=== PATIENT | female | born 1960 | race Caucasian/White ===

== ENCOUNTER → 2017-05-10 | Outpatient (CLI) | payer MEDICAID ==
[~2017-05-10] MED LIST: ASPI-621 PO; DOCU-131 PO; FURO-92 PO; FURO20TA3 PO; GABA-826 PO; GABA-827 PO; HYDR-3245 PO; LEVO50TA5 PO; OXYC1TAB7 PO; PANT40TA5 PO; POTA10TA6 PO; POTA20TA14 PO; Thyroid Med PO; WARF7.5T6 PO-COUM; gabapentin PO
== END ==
LOC: CFH 07:19
PROVIDERS: ATTEND Nurse Practitioner
DX: M48.02 Spinal stenosis, cervical region (principal); M50.222 Other cervical disc displacement at C5-C6 level; M50.323 Other cervical disc degeneration at C6-C7 level
CPT/HCPCS: 72050; 72141

== ENCOUNTER 2017-10-04 22:11 | Inpatient (IN) | payer MEDICAID ==
[~2017-10-04] VITALS: Ht 172.7 cm; Wt 69.3 kg
[~2017-10-04 22:11] MED LIST changes: +WARF7.5T46 PO-COUM; -WARF7.5T6 PO-COUM
[2017-10-04 23:02] LABS: BASOPHILS # (AUTO) 0.03 x10^3/uL (0-0.1); BASOPHILS % (AUTO) 1 % (0-1); EOSINOPHILS # (AUTO) 0.07 x10^3/uL (0-0.4); EOSINOPHILS % (AUTO) 1 % (1-7); LYMPHOCYTES % (AUTO) 34 % (22-44); MD NO; MEAN CORPUSCULAR HGB CONC 33.1 g/dL (32.4-35.8); MEAN CORPUSCULAR VOLUME 90.7 fL (80-100); MEAN PLATELET VOLUME 7.8 fL (7.4-10.4); MONOCYTES # (AUTO) 0.42 x10^3/uL (0.2-0.8); MONOCYTES % (AUTO) 8 % (2-9); NEUTROPHILS # (AUTO) 2.86 x10^3/uL (1.8-6.8); NEUTROPHILS % (AUTO) 56 % (42-75); PLATELET COUNT 216 x10^3/uL (130-400); RED CELL DISTRIBUTION WIDTH 14.3 % (9.6-15.2)
[2017-10-04 23:15] LABS: ALANINE AMINOTRANSFERASE 32 U/L (12-78); ANION GAP 12 mmol/L (5-15); CALCIUM 9.3 mg/dL (8.5-10.1); CHLORIDE 106 mmol/L (98-107); CREATININE 1.29 mg/dL (0.55-1.02)
[2017-10-04 23:19] LABS: ALKALINE PHOSPHATASE 52 U/L (45-117); BILIRUBIN,TOTAL 0.5 mg/dL (0.2-1.0); TOTAL PROTEIN 6.8 g/dL (6.4-8.2); TROPONIN I < 0.015 ng/mL (0.000-0.045)
[2017-10-05] MEDS ORDERED: MAALOX/HYOSCYAMINE/LIDOCAINE 45 ML BTL PO ONE (00:30)
[2017-10-05] MEDS ORDERED: MAALOX/HYOSCYAMINE/LIDOCAINE 45 ML BTL ONE (00:37)
[2017-10-05] MEDS ORDERED: DULO30CA2 PO (01:00)
[2017-10-05] MEDS ORDERED: ASPIRIN 81 MG TABLET CHEW PO ONE (01:00)
[2017-10-05] MEDS ORDERED: METH750T87 PO (01:00)
[2017-10-05] MEDS ORDERED: ASPIRIN 81 MG TABLET CHEW ONE (01:29)
[2017-10-05] MEDS ORDERED: SODIUM CHLORIDE FLUSH 10ML SYR IVF PRN (01:30)
[2017-10-05 02:09] VITALS: BP 129/76
[2017-10-05 02:11] VITALS: BP 129/70
[2017-10-05] MEDS ORDERED: NS + 20MEQ KCL 1,000 ML IV SCH (05:48)
[2017-10-05] MEDS ORDERED: DOCUSATE 100 MG CAPSULE PO PRN (06:00)
[2017-10-05] MEDS ORDERED: ONDANSETRON 2MG/ML, 2ML IVPush PRN (06:00)
[2017-10-05] MEDS ORDERED: ACETAMINOPHEN 325 MG TABLET PO PRN (06:00)
[2017-10-05] MEDS ORDERED: morphine SULFATE 10 MG/ML, 1ML IVPush PRN (06:00)
[2017-10-05] MEDS ORDERED: HYDROcodone/APAP 10/325 MG TABLET PO PRN (06:00)
[2017-10-05] MEDS: METHOCARBAMOL 750 MG TABLET PO SCH ×4 (06:12→15:59)
[2017-10-05 06:44] LABS: TROPONIN I < 0.015 ng/mL (0.000-0.045)
[2017-10-05] MEDS ORDERED: PANTOPROZOLE 40MG TABLET PO SCH (07:30)
[2017-10-05 08:00] VITALS: BP 117/77
[2017-10-05] MEDS: ENOXAPARIN 40 MG/0.4 ML SQ SCH ×3 (08:04→09:00)
[2017-10-05] MEDS ORDERED: REGADENOSON 0.4 MG/5 ML SYRINGE ONE (08:13)
[2017-10-05] MEDS ORDERED: ASPIRIN 81 MG TABLET EC PO SCH (09:00)
[2017-10-05] MEDS ORDERED: DULOXETINE 30 MG CAPSULE.DR PO SCH (09:00)
[2017-10-05] MEDS ORDERED: LEVOTHYROXINE 50 MCG TABLET PO SCH (09:00)
[2017-10-05 14:30] VITALS: BP 105/68
== END 2017-10-05 16:57 | disposition home or self-care (01) | DRG 313 ==
LOC: ED 23:36 → EDIP 10-05 00:59 → 5SO 10-05 02:07
PROVIDERS: ADMIT Family Medicine; ATTEND Family Medicine
DX: R07.89 Other chest pain (principal); N17.0 Acute kidney failure with tubular necrosis; E86.0 Dehydration; G43.909 Migraine, unspecified, not intractable, without status migrainosus; K21.9 Gastro-esophageal reflux disease without esophagitis; I70.0 Atherosclerosis of aorta; Z95.3 Presence of xenogenic heart valve; Z83.3 Family history of diabetes mellitus; I35.0 Nonrheumatic aortic (valve) stenosis; G89.29 Other chronic pain; E03.9 Hypothyroidism, unspecified; Z79.82 Long term (current) use of aspirin
CPT/HCPCS: 36415; 71045; 78452; 80053; 84484; 85025; 93005; 93017; 99285; J1650; J2785; J3480; A9502; C9898

== ENCOUNTER 2018-06-12 11:26 | Emergency (ER) | payer MEDICAID ==
[~2018-06-12] VITALS: Ht 172.7 cm; Wt 66.0 kg
[~2018-06-12 11:26] MED LIST changes: -ASPI-621 PO; +ASPI81TA45 PO; +DULO30CA2 PO; +METH750T87 PO
[2018-06-12] MEDS ORDERED: ONDANSETRON ODT 4 MG ONE (12:57)
[2018-06-12] MEDS ORDERED: HYDROmorphone 2 MG/ML, 1ML ONE ×2 (12:58→13:59)
[2018-06-12] MEDS ORDERED: ONDANSETRON ODT 4 MG PO ONE (13:00)
[2018-06-12] MEDS ORDERED: HYDROmorphone 2 MG/ML, 1ML IM ONE ×2 (13:00→14:00)
[2018-06-12 14:24] VITALS: BP 122/70
== END 2018-06-12 14:27 | disposition home or self-care (01) ==
LOC: ED 12:52
DX: G89.29 Other chronic pain (principal); M54.6 Pain in thoracic spine; M54.2 Cervicalgia; E03.9 Hypothyroidism, unspecified
CPT/HCPCS: 96372; 99283; J1170; Q0162

== ENCOUNTER 2019-07-06 01:58 | Emergency (ER) | payer MEDICAID ==
[~2019-07-06] VITALS: Ht 172.7 cm; Wt 66.6 kg
--- NOTE | 2019-07-06 02:42 | NUR ---
Patient presents to ER stating "I know I have an infection [id number]."
[2019-07-06 02:59] LABS: BASOPHILS # (AUTO) 0.02 x10^3/uL (0-0.1); BASOPHILS % (AUTO) 1 % (0-1); EOSINOPHILS # (AUTO) 0.09 x10^3/uL (0-0.4); EOSINOPHILS % (AUTO) 2 % (1-7); LYMPHOCYTES # (AUTO) 1.39 x10^3/uL (1-3.4); LYMPHOCYTES % (AUTO) 34 % (22-44); MD NO; MEAN CORPUSCULAR HEMOGLOBIN 29.8 pg (27.0-34.8); MEAN CORPUSCULAR HGB CONC 33.1 g/dL (32.4-35.8); MEAN PLATELET VOLUME 7.8 fL (7.4-10.4); MONOCYTES # (AUTO) 0.39 x10^3/uL (0.2-0.8); MONOCYTES % (AUTO) 9 % (2-9); NEUTROPHILS # (AUTO) 2.24 x10^3/uL (1.8-6.8); NEUTROPHILS % (AUTO) 54 % (42-75); PLATELET COUNT 191 x10^3/uL (130-400); RED BLOOD COUNT 4.44 x10^6/uL (3.82-5.3); RED CELL DISTRIBUTION WIDTH 12.8 % (9.6-15.2)
[2019-07-06 03:09] LABS: ALANINE AMINOTRANSFERASE 25 U/L (12-78); ALBUMIN 3.8 g/dL (3.4-5.0); ANION GAP 5 mmol/L (5-15); CALCIUM 9.7 mg/dL (8.5-10.1); CHLORIDE 105 mmol/L (98-107); CREATININE 0.79 mg/dL (0.55-1.02)
[2019-07-06 03:10] LABS: MICROSCOPIC NOT IND
[2019-07-06 03:12] LABS: ALKALINE PHOSPHATASE 51 U/L (45-117); BILIRUBIN,TOTAL 0.5 mg/dL (0.2-1.0); TOTAL PROTEIN 6.6 g/dL (6.4-8.2)
[2019-07-06 03:16] LABS: CULTURE INDICATED? NO
[2019-07-06 03:19] LABS: TROPONIN I < 0.015 ng/mL (0.000-0.045)
[2019-07-06 03:52] VITALS: BP 137/78
--- NOTE | 2019-07-06 03:56 | NUR ---
Discharge instructions given. All questions and concerns addressed. Patient ambulatory with a steady gait. Belongings with patient.
== END 2019-07-06 03:58 | disposition home or self-care (01) ==
LOC: ED 02:41
DX: R10.13 Epigastric pain (principal); E03.9 Hypothyroidism, unspecified; G43.909 Migraine, unspecified, not intractable, without status migrainosus; Z95.2 Presence of prosthetic heart valve
CPT/HCPCS: 36415; 71045; 80053; 81003; 83690; 84484; 85025; 93005; 99284